=== PATIENT | female | born 1990 | race Caucasian/White ===

== ENCOUNTER 2022-04-05 13:26 | Inpatient (IN) | payer BC ==
[2022-04-08] MEDS ORDERED: TERBUTALINE 1 MG/ML VIAL SQ PRN (07:14)
[2022-04-08] MEDS ORDERED: LIDOCAINE 0.5% (PF) 5 MG/ML (50 ML SDV) SQ PRN (07:14)
[2022-04-08] MEDS ORDERED: CARBOPROST TROMETHAMINE 250 MCG/ML 1 ML AMP IM PRN (07:14)
[2022-04-08] MEDS ORDERED: METHYLERGONOVINE 0.2 MG/ML 1 ML AMP IM PRN (07:14)
[2022-04-08] MEDS ORDERED: OXYTOCIN 10 UNIT/ML 1 ML VIAL IM PRN (07:14)
[2022-04-08] MEDS ORDERED: OXYTOCIN 30 UNITS/500 ML NS 30 UNIT in SALINE 1 500ML.BAG IV SCH ×2 (07:15→18:00)
[2022-04-08 07:52] VITALS: RESP 16
[2022-04-08] MEDS: LACTATED RINGERS 1,000 ML IV SCH ×2 (07:59→22:18)
[2022-04-08 09:05] LABS: Basophils # (A) 0.1 k/uL (0-0.2); Basophils % (A) 1 %; Eosinophils # (A) 0.1 k/uL (0-0.7); Eosinophils % (A) 1 %; HCT 39.3 % (34.0-46.0); HGB 13.3 gm/dL (11.4-16.0); Lymphocytes # (A) 2.1 k/uL (1.0-4.8); Lymphocytes % (A) 23 %; MCH 31.7 pg (25.0-35.0); MCHC 33.9 g/dL (31.0-37.0); MCV 93.6 fL (80.0-100.0); Mean Platelet Volume 10.4; Monocytes # (A) 0.8 k/uL (0-1.0); Monocytes % (A) 8 %; Neutrophils % (A) 65 %; Platelet Count 203 k/uL (150-450); RDW 12.3 % (11.5-15.5); WBC 9.2 k/uL (3.8-10.6)
[2022-04-08] MEDS ORDERED: BUTORPHANOL 1 MG/ML 1 ML VIAL IV PRN (09:17)
--- NOTE | 2022-04-08 09:22 | P.HPOB ---
History of Present Illness H&P Date: 04/08/22 Chief Complaint: 40-3/7 weeks, induction the patient is a 31-year-old 1 para 0 admitted at 40-3/7 weeks as established by 6 week ultrasound. She is admitted for postdates induction of labor with all signs reassuring. Her has been uncomplicated and group B strep status is negative. Obstetrical history: 1 para 0 with current statistics listed in history of present illness. EDC of 04/05/2022 was established by a 6 week ultrasound. Laboratory workup demonstrates a blood type of A+ with a negative antibody screen. Rubella status is immune. The remainder of the laboratory workup was within normal limits. One hour Glucola was normal and group B strep status is negative. Gynecologic history: Unremarkable with no history of any infections to include STDs. Review of Systems review of systems is confined to history of present illness. Past Medical History Past Medical History: No Reported History History of Any Multi-Drug Resistant Organisms: None Reported Past Surgical History: No Surgical Hx Reported Past Psychological History: Anxiety, Panic Disorder Smoking Status: Former smoker Past Alcohol Use History: None Reported Past Drug Use History: None Reported - Past Family History Father History Unknown: Yes Family Medical History: Cancer, Hypertension Medications and Allergies Home Medications Medication Instructions Recorded Confirmed Type Aspirin 1 tab PO DAILY 04/08/22 04/08/22 History Vit No.179/Iron/Folic 1 tab PO DAILY 04/08/22 04/08/22 History [ Tablet] Sertraline [Zoloft] 50 mg PO DAILY 04/08/22 04/08/22 History Allergies Allergy/AdvReac Type Severity Reaction Status Date / Time No Known Allergies Allergy Verified 04/08/22 07:11 Exam Vital Signs Temp Pulse Resp BP Pulse Ox 04/08/22 07:51 97.6 F 72 16 135/88 98 04/08/22 07:42 97.6 F 72 16 135/88 98 Intake and Output 04/07/22 04/08/22 04/08/22 22:59 06:59 14:59 Other: Weight 88.451 kg in general, this is a well-developed, well-nourished white female in no acute distress read her heart has a regular rhythm and rate without murmur. Her lungs clear to auscultation bilaterally in all luther. Her abdomen is gravid, nondistended, has normal active bowel sounds, soft, nontender, without any palpable masses aside from uterine fundus. Her extremities are without any cyanosis, clubbing, or edema and are nontender to palpation bilaterally. Digital cervical examination demonstrates her cervix to be approximately 2-3 cm dilated, 50% effaced, the vertex in presentation at -2 station. Artificial rupture of membranes is carried out demonstrating clear fluid. Results Result Diagrams: 04/08/22 07:08 Assessment and Plan (1) Post-dates Current Visit: Yes Status: Acute Code(s): O48.0 - POST-TERM SNOMED Code(s): 19244420 Plan: the patient is admitted for postdates induction with all signs reassuring and a favorable cervix. Pitocin augmentation has been started and she is undergone artificial rupture of membranes. She will have close maternal and surveillance and expectant management will be practiced. She did candidate for either IV or epidural analgesia, whichever she may choose.
[2022-04-08] MEDS ORDERED: fentaNYL (PF) 50 MCG/ML 5 ML AMP ONE (13:16)
[2022-04-08] MEDS ORDERED: SODIUM CHLORIDE 0.9% 100 ML BAG ONE (13:16)
[2022-04-08] MEDS ORDERED: ROPIVACAINE 5MG/ML 20ML VIAL ONE (13:16)
[2022-04-08] MEDS ORDERED: BENZOCAINE/MENTHOL SPRAY 1 GM/SPRAY AEROSOL TOPICAL PRN (17:53)
[2022-04-08] MEDS ORDERED: ACETAMINOPHEN TAB 325 MG TAB PO PRN (17:53)
[2022-04-08] MEDS ORDERED: SIMETHICONE 80 MG CHEWABLE PO PRN (17:53)
[2022-04-08] MEDS ORDERED: HYDROCORTISONE 2.5% RECTAL CREAM 30 GM TUBE RECTAL PRN (17:53)
[2022-04-08] MEDS ORDERED: diphenhydrAMINE 50 MG CAP PO PRN (17:53)
[2022-04-08] MEDS ORDERED: ZOLPIDEM 5 MG TAB PO PRN (17:53)
[2022-04-08] MEDS ORDERED: diphenhydrAMINE 50 MG/ML 1 ML VIAL IVP PRN ×2 (17:53)
[2022-04-08] MEDS ORDERED: HYDROcodone/APAP 7.5-325MG 1 EACH TAB PO PRN (17:53)
[2022-04-08] MEDS ORDERED: diphenhydrAMINE 25 MG CAP PO PRN (17:53)
[2022-04-08] MEDS ORDERED: LANOLIN CREAM 5 GM TUBE TOPICAL PRN (17:53)
[2022-04-08] MEDS ORDERED: HYDROcodone/APAP 5-325MG 1 EACH TAB PO PRN (17:53)
--- NOTE | 2022-04-08 17:57 | P.PROBDLV ---
Vaginal Delivery Note - . Vaginal Delivery Note: the is a 31-year-old 1 para 0 admitted at 40-3/7 weeks by good dating parameters perches admitted for postdates induction of labor with a favorable cervix and all signs reassuring, category 1 heart rate tracing. Her has been uncomplicated and group B strep status is negative. On labor and delivery, she had Pitocin started and then underwent artificial rupture of membranes for clear fluid. She made progress through the latent phase of labor and had an epidural catheter placed for analgesia. She then progressed very consistently through the active phase of labor to complete. She then pushed over the course of approximately 25 minutes to a normal spontaneous vaginal delivery of a viable 7 lbs. 13 oz. baby girl with Apgars of 8 at 1 minute and 9 at 5 minutes. The placenta delivered spontaneously, intact, and grossly normal with a grossly normal three-vessel cord inserted approximate 45 cm from margin of the placental disc. There were no reparable lacerations of the perineum, vagina, or cervix. Estimated blood loss for the case is approximately 400 mL. There were no complications. All sponge, instrument, and needle counts were correct. Both mother and infant are resting comfortably in recovery.
[2022-04-08] MEDS: IBUPROFEN 600 MG TAB PO PRN (19:14)
[2022-04-08] MEDS: SENNOSIDES-DOCUSATE SODIUM 1 EACH TAB PO SCH (19:15)
[2022-04-09] MEDS: IBUPROFEN 600 MG TAB PO PRN (05:45)
[2022-04-09 07:22] LABS: Basophils % (A) 0 %; Eosinophils # (A) 0.1 k/uL (0-0.7); Eosinophils % (A) 1 %; HCT 32.4 % (34.0-46.0); HGB 11.2 gm/dL (11.4-16.0); Lymphocytes % (A) 17 %; MCH 32.3 pg (25.0-35.0); MCHC 34.5 g/dL (31.0-37.0); MCV 93.6 fL (80.0-100.0); Mean Platelet Volume 8.8; Monocytes # (A) 0.8 k/uL (0-1.0); Monocytes % (A) 7 %; Neutrophils # (A) 8.6 k/uL (1.3-7.7); Neutrophils % (A) 74 %; Platelet Count 154 k/uL (150-450); RBC 3.46 m/uL (3.80-5.40); RDW 12.5 % (11.5-15.5); WBC 11.7 k/uL (3.8-10.6)
[2022-04-09] MEDS: SENNOSIDES-DOCUSATE SODIUM 1 EACH TAB PO SCH (07:51)
--- NOTE | 2022-04-09 08:57 | P.DS ---
Providers Date of admission: 04/08/22 06:38 Expected date of discharge: 04/09/22 Attending physician: Fredy Lopez Primary care physician: Stated None - Discharge Diagnosis(es) (1) Post-dates Current Visit: Yes Status: Acute Hospital Course: the patient is a 31-year-old 1 para 0 admitted at 40-3/7 weeks by good dating parameters perches admitted for postdates induction with all signs reassuring. Her was entirely uncomplicated and group B strep status is negative. On labor and delivery, she had a category 1 heart rate tracing and had Pitocin augmentation started. She then underwent artificial rupture of membranes for clear fluid. She made progress to the active phase of labor which time an epidural catheter was placed for analgesia. She then progressed steadily to complete and pushed to a normal spontaneous vaginal delivery of a viable 7 lbs. 13 oz. baby girl with Apgars of 8 at 1 minute and 9 at 5 minutes. Her course was unremarkable vital signs being stable and her temperature was afebrile throughout. She was deemed stable for discharge on day #1 was discharged home to follow-up in the office in 6 weeks' time routinely. Discharge instructions included calling for any significantly increased bleeding or foul-smelling lochia, significantly increased fever or abdominal pain, perineal complaints, breast complaints, or anything else that concerned her. She was additionally instructed to have nothing in the vagina for at least 6 weeks time to include intercourse. She und erstood her instructions and agrees to follow up as noted above. Discharge medications included continued vitamins as she has opted to breast- feed.maternal blood typeis A+ and rubella status is immune. Procedures: #1. Pitocin induction #2. Artificial rupture of membranes #3. Epidural analgesia #4. Spontaneous vaginal delivery Patient Condition at Discharge: Stable Plan - Discharge Summary New Discharge Prescriptions: No Action Sertraline [Zoloft] 50 mg PO DAILY Vit No.179/Iron/Folic [ Tablet] 1 tab PO DAILY Aspirin 1 tab PO DAILY Discharge Medication List Aspirin 1 tab PO DAILY 04/08/22 [History] Vit No.179/Iron/Folic [ Tablet] 1 tab PO DAILY 04/08/22 [History] Sertraline [Zoloft] 50 mg PO DAILY 04/08/22 [History] Follow up Appointment(s)/Referral(s): Fredy Lopez MD [STAFF PHYSICIAN] - 6 Weeks Discharge Disposition: HOME SELF-CARE
[2022-04-09 16:55] VITALS: BP 117/77; PULSE 67; TEMP 98.1
== END 2022-04-09 18:35 | disposition home or self-care (01) | DRG 807 ==
LOC: 4FBP 04-08 06:38
PROVIDERS: ADMIT Obstetrics & Gynecology; ATTEND Obstetrics & Gynecology
PROC: 10E0XZZ Delivery of Products of Conception, External Approach (ICD-10-PCS; principal; 2022-04-08)
PROC: 10907ZC Drainage of Amniotic Fluid, Therapeutic from Products of Conception, Via Natural or Artificial Opening (ICD-10-PCS; 2022-04-08)
PROC: 00HU33Z Insertion of Infusion Device into Spinal Canal, Percutaneous Approach (ICD-10-PCS; 2022-04-08)
PROC: 3E033VJ Introduction of Other Hormone into Peripheral Vein, Percutaneous Approach (ICD-10-PCS; 2022-04-08)
PROC: 3E0R3BZ Introduction of Anesthetic Agent into Spinal Canal, Percutaneous Approach (ICD-10-PCS; 2022-04-08)
DX: O48.0 Post-term pregnancy (principal); Z37.0 Single live birth; O99.62 Diseases of the digestive system complicating childbirth; K21.9 Gastro-esophageal reflux disease without esophagitis; O99.344 Other mental disorders complicating childbirth; F41.0 Panic disorder [episodic paroxysmal anxiety]; Z3A.40 40 weeks gestation of pregnancy; Z79.82 Long term (current) use of aspirin; Z79.899 Other long term (current) drug therapy; Z87.891 Personal history of nicotine dependence
CPT/HCPCS: 85025; 86850; 86900; 86901